=== PATIENT | male | born 1960 | race Caucasian/White ===

== ENCOUNTER 2020-04-26 14:43 | Emergency (ER) | payer MEDICARE ==
[~2020-04-26] VITALS: Ht 172.7 cm; Wt 104.3 kg
[2020-04-26 14:45] VITALS: BP_SYST 153
[2020-04-26] MEDS ORDERED: LORazepam 1 MG TABLET PO ONE (15:15)
[2020-04-26] MEDS ORDERED: IBUPROFEN 800 MG TABLET PO ONE (15:15)
[2020-04-26] MEDS ORDERED: IBUPROFEN 800 MG TABLET ONE (15:19)
[2020-04-26 15:44] LABS: BASOPHILS % (AUTO) 0.5 % (0.0-2.0); EOSINOPHILS # (AUTO) 0.1 K/uL (0.0-0.4); EOSINOPHILS % (AUTO) 1.7 % (0.0-4.0); HEMATOCRIT 44.6 % (36-54); HEMOGLOBIN 15.1 g/dL (14.0-18.0); LYMPHOCYTES # (AUTO) 1.7 K/uL (1.0-5.5); LYMPHOCYTES % (AUTO) 28.1 % (20.5-51.5); MEAN CORPUSCULAR HEMOGLOBIN 32 pg (27-31); MEAN CORPUSCULAR HGB CONC 34 % (32-36); MEAN CORPUSCULAR VOLUME 93 fL (79.0-98.0); MONOCYTES # (AUTO) 0.6 K/uL (0.0-1.0); MONOCYTES % (AUTO) 10.6 % (1.7-9.3); NEUTROPHILS # (AUTO) 3.6 K/uL (1.8-7.7); NEUTROPHILS % (AUTO) 59.1 % (40.0-70.0); PLATELET COUNT (AUTO) 212 K/uL (130-430); RED BLOOD CELL COUNT(AUTO) 4.77 MIL/uL (4.2-6.2); RED CELL DISTRIBUTION WIDTH 13.2 % (9.0-15.0); WHITE BLOOD COUNT (AUTO) 6.1 K/uL (4.8-10.8)
[2020-04-26 16:02] LABS: C-REACTIVE PROTEIN QUANT 0.2 mg/dL (0-0.5); PROTHROMBIN TIME 10.1 SECS (9.5-12.5)
[2020-04-26 16:14] LABS: CALCIUM 8.9 mg/dL (8.4-11.0); CREATININE 0.81 mg/dL (0.55-1.30); POTASSIUM 4.8 mmol/L (3.5-5.1); TOTAL BILIRUBIN 0.8 mg/dL (0.0-1.0)
[2020-04-26 16:15] LABS: URIC ACID 5.8 mg/dL (2.4-7.0)
[2020-04-26] MEDS ORDERED: HYDR-3110 PO (17:08)
[2020-04-26] MEDS ORDERED: IBUP-1971 PO (17:08)
[2020-04-26 17:12] LABS: ERYTHROCYTE SEDIMENTATION RATE 2 MM/HR (0-15)
[2020-04-26 17:19] VITALS: BP_SYST 146
== END 2020-04-26 17:20 | disposition home or self-care (01) ==
LOC: SED 14:43
DX: E11.40 Type 2 diabetes mellitus with diabetic neuropathy, unspecified (principal)
CPT/HCPCS: 36415; 80053; 83036; 84550-TC; 85025; 85610-TC; 85651-TC; 85730-TC; 86140; 93971; 99284